=== PATIENT | male | born 1990 | race Caucasian/White ===

== ENCOUNTER → 2018-11-24 | Outpatient (REF) ==
[2018-11-25 09:48] LABS: RUBELLA IgG QUALITATIVE IMMUNE (IMMUNE)
[2018-11-25 10:53] LABS: HERPES ZOSTER, VARICELLA IgG 320 index (Immune >165); RUBEOLA IgG ANTIBODY <25.0 AU/mL (Immune >29.9)
== END ==
LOC: M LAB 10:21
PROVIDERS: ATTEND Nurse Practitioner Adult Health
DX: Z02.89 Encounter for other administrative examinations (principal)

== ENCOUNTER → 2018-12-15 | Outpatient (REF) | payer OTHER ==
[2018-12-15 12:15] LABS: ALBUMIN 4.3 GM/DL (3.2-5.2); ALT/SGPT 29 U/L (12-78); BILIRUBIN,TOTAL 0.5 MG/DL (0.2-1.0); BLOOD UREA NITROGEN 11 MG/DL (7-18); CALCIUM LEVEL 9.2 MG/DL (8.5-10.1); CARBON DIOXIDE LEVEL 30 MEQ/L (21-32); CHLORIDE LEVEL 103 MEQ/L (98-107); CREATININE FOR GFR 0.93 MG/DL (0.70-1.30); FREE T4 1.29 NG/DL (0.76-1.46); GLOMERULAR FILTRATION RATE > 60.0 (>60); GLUCOSE, FASTING 85 MG/DL (70-100); POTASSIUM SERUM 3.8 MEQ/L (3.5-5.1); SODIUM LEVEL 139 MEQ/L (136-145); TOTAL PROTEIN 7.6 GM/DL (6.4-8.2)
[2018-12-15 12:47] LABS: MALB URINE SIEMENS 49.5 MG/L; MAU/CREAT RATIO 26.6 MCG/MG (0.0-30.0)
== END ==
LOC: M SFHCPLAZ 07:57
PROVIDERS: ATTEND Physician Assistant
DX: I10 Essential (primary) hypertension (principal)

== ENCOUNTER → 2019-04-07 | Outpatient (REF) | payer OTHER ==
[2019-04-07 13:39] LABS: HEMOGLOBIN A1c 5.1 %
[2019-04-07 13:54] LABS: CHOLESTEROL RISK RATIO 4.523 (<5)
== END ==
LOC: M SFHCPLAZ 11:49
PROVIDERS: ATTEND Family Medicine
DX: Z13.1 Encounter for screening for diabetes mellitus (principal); Z13.220 Encounter for screening for lipoid disorders